=== PATIENT | female | born 1980 | race Two or more races ===

== ENCOUNTER → 2017-08-03 | Outpatient (CLI) | payer OTHER ==
[~2017-08-03] MED LIST: ACETAMINOPHEN; AIRBORNE; AMOX500 PO; AZIT250 PO; CYCL10; HYDACE5; HYDACE5 PO; IBUP400 PO; IBUP600; IBUP600 PO; IBUP800 PO; IBUPROFEN; OXYACE5T PO; PREN-16 PO
== END | disposition home or self-care (01) ==
LOC: LAB SHORT 07:57 → PLD 07:57
DX: N72 Inflammatory disease of cervix uteri (principal); N87.9 Dysplasia of cervix uteri, unspecified
CPT/HCPCS: 88305

== ENCOUNTER → 2017-08-11 | Outpatient (CLI) | payer OTHER ==
[2017-08-11 12:39] LABS: Source, Urine Clean Catch
[2017-08-11 13:45] LABS: Appearance, Urine Clear (Clear); Bilirubin, Urine Neg (Neg); Blood, Urine Neg (Neg); Color, Urine Yellow (P-Yellow); Glucose Qualitative, Urine Neg (Neg); Ketones, Urine Neg (Neg); Leukocyte Esterase, Urine Neg (Neg); Nitrite, Urine Neg (Neg); Protein, Urine Neg (Neg); Specific Gravity, Urine 1.015 (1.003-1.022); Urobilinogen, Urine NORM (Normal)
[2017-08-11 15:04] LABS: Candida species (DNA Probe) Negative (NEGATIVE); G. vaginalis (DNA Probe) Negative (NEGATIVE); T. vaginalis (DNA Probe) Negative (NEGATIVE)
== END | disposition home or self-care (01) ==
LOC: LAB SHORT 12:07 → LAB 12:07
PROVIDERS: Obstetrics & Gynecology
DX: N76.0 Acute vaginitis (principal); R30.0 Dysuria
CPT/HCPCS: 81003; 87480; 87510; 87660

== ENCOUNTER → 2018-04-25 | Outpatient (CLI) | payer OTHER ==
[2018-04-25 14:21] LABS: Candida species (DNA Probe) Negative (NEGATIVE); G. vaginalis (DNA Probe) Negative (NEGATIVE); T. vaginalis (DNA Probe) Negative (NEGATIVE)
[2018-04-27 15:07] LABS: HPV 16 Negative (Negative); HPV 18 Negative (Negative); HPV OTHER HR TYPES Positive (Negative)
== END | disposition home or self-care (01) ==
LOC: LAB SHORT 10:29 → LAB 10:29
PROVIDERS: Nurse Practitioner Obstetrics & Gynecology
DX: Z01.411 Encounter for gynecological examination (general) (routine) with abnormal findings (principal); N76.0 Acute vaginitis
CPT/HCPCS: 87480; 87510; 87624; 87625; 87660; G0123

== ENCOUNTER → 2018-08-14 | Outpatient (CLI) | payer OTHER ==
[~2018-08-14] MED LIST changes: +DOCU100 PO; +HYDR1TAB94 PO; +LORA.5 PO; +MELATONIN5 M1 PO; +ONDA4ODT MM; +PSEU120ER PO
== END | disposition home or self-care (01) ==
LOC: PLD 08:08 → LAB SHORT 08:08
DX: D06.0 Carcinoma in situ of endocervix (principal)
CPT/HCPCS: 88305

== ENCOUNTER 2018-11-19 07:37 | Day surgery (SDC) | payer OTHER ==
[~2018-11-19] VITALS: Ht 154.9 cm; Wt 53.6 kg
[~2018-11-19 07:37] MED LIST changes: -DOCU100 PO; -HYDR1TAB94 PO; -ONDA4ODT MM
--- NOTE | 2018-11-19 08:17 | NUR ---
History, Chart, Medications and Allergies reviewed before start of procedure. Patient confirms NPO status and agrees with scheduled surgery. Lungs clear T/O to Auscultation. Pre-Op teaching done. Pt verbalizes understanding. Patient reports completing Chlorhexadine shower X2 prior to admission to hospital. PATIENT HAS ONE REMAINING PIERCING IN HER RIGHT EAR, REFUSAL FORM ON CHART.
--- NOTE | 2018-11-19 09:05 | NUR ---
0835-SWITCHBOARD RECEPTIONIST REPORT COMPLETED AT BEDSIDE WITH JITENDRA DE LA GARZA RN PRE-SURGICALLY.
--- NOTE | 2018-11-19 09:06 | NUR ---
TRACKER CARD EXPLAINED TO PATIENT'S MOTHER, PLANS TO LEAVE DURING SURGERY, NOTE LEFT FOR DR LARIOS THAT MOTHER WOULD PREFER HER TO CALL HER AFTER SURGERY.
--- NOTE | 2018-11-19 11:23 | NUR ---
REPORT RECIEVED FROM LISA CALLES
--- NOTE | 2018-11-19 15:47 | NUR ---
POST OP: REPORT RECIEVED FROM MANDOLIN REPAIR PERSONLISA CALLES. PT TO UNIT AT ABOUT 1130. UPON ASSESSMENT PT IS IN NO VISABLE DISTRESS, A/O, VSS. SURGICAL SITES WNL, NO VAGINAL BLEED. PT ABLE TO SIT UP AND HAVE ICE CHIPS. ADMISSION HX COMPLETED. WILL CTM
--- NOTE | 2018-11-19 19:26 | NUR ---
SUMMARY: NO ACUTE CHANGE SINCE POST OP. VSS, A/O. PT ABLE TO AMBULATE IN ROOM AND SIT IN RECLINER, TOLERATING REG DIET. CRAMPING PAIN MEDICATED WITH NARCO, GIVEN WITH ZOFRAN. PT HAS DENIED NAUSEA. SURGICAL SITES WNL. SCANT VAGINAL BLEED, PASHA PAD IN PLACE. REPORT GIVEN TO LISA VELEZ.
[2018-11-20 04:54] LABS: BASOPHILS ABSOLUTE AUTO 0.01 K/mm3 (0.00-0.23); BASOPHILS PERCENT AUTO 0 % (0-2); EOSINOPHILS ABSOLUTE AUTO 0.03 K/mm3 (0.00-0.68); EOSINOPHILS PERCENT AUTO 0 % (0-6); Hematocrit 34.4 % (33.0-51.0); Hemoglobin 11.7 g/dL (11.5-16.0); IMMATURE GRAN ABSOLUTE AUTO 0.05 K/mm3 (0.00-0.10); IMMATURE GRAN PERCENT AUTO 0 % (0-1); LYMPHOCYTES ABSOLUTE AUTO 2.96 K/mm3 (0.84-5.20); LYMPHOCYTES PERCENT AUTO 25 % (21-46); MONOCYTES ABSOLUTE AUTO 0.75 K/mm3 (0.16-1.47); MONOCYTES PERCENT AUTO 6 % (4-13); Mean Corpuscular HGB 31.2 pg (26.0-34.0); Mean Corpuscular Volume 92 fL (80-100); Mean Platelet Volume 9.9 fL (9.1-12.4); NEUTROPHILS ABSOLUTE AUTO 8.07 K/mm3 (1.96-9.15); NEUTROPHILS PERCENT AUTO 68 % (41-73); Platelet Count 368 K/mm3 (150-400); RDW Coefficient Variation 11.9 % (11.7-14.2); RDW Standard Deviation 39.9 fL (35.1-46.3); Red Blood Cell Count 3.75 M/mm3 (3.80-5.20); White Blood Cell Count 11.87 K/mm3 (4.00-11.30)
--- NOTE | 2018-11-20 05:50 | NUR ---
SHIFT SUMMARY: PT IS ALERT AND ORIENTED. PT IS CALM AND COOPERATIVE WITH CARE. PT CALLS APPROPRIATELY. PT IS INDEPENDENT IN THE ROOM. PT REPORTS LOWER ABD PAIN ON SEVERAL OCCASIONS, MEDICATING PER EMAR. PT REPORTS NAUSEA R/T PAIN MEDICATION, GIVING PRN ZOFRAN WITH PAIN MEDS. PT DENIES VOMITING AND SOB. FAMILY IN VISITING AT THE START OF THE NIGHT. ELLISON REMOVED @ 0500, PVR SHOWED 31 ML, WILL CONTINUE TO MONITOR. WILL REPORT TO DAY NURSE.
[2018-11-20] MEDS ORDERED: DOCU100 PO (10:22)
[2018-11-20] MEDS ORDERED: HYDR1TAB94 PO (10:23)
[2018-11-20] MEDS ORDERED: ONDA4ODT MM (10:26)
--- NOTE | 2018-11-20 13:41 | NUR ---
DISCHARGE: PT ABLE TO AMBULATE IN HALLS AND VOID THIS AM. PAIN WELL MANAGED WITH HYDROCODONE, NO REPORT OF NAUSEA. DISCHARGE PACKET PRINTED AND EDUCATION GIVEN, PT VERBALIZED UNDERSTANDING. PT SENT WITH SCRIPTS FOR HYDROCODONE AND ZOFRAN. LEFT UNIT WITH DAUGHTER BY FOOT.
== END 2018-11-20 14:00 | disposition home or self-care (01) ==
LOC: ORSCMMR 07:37 → ORD 09:10 → ORSCMMR 09:10 → SURS 11:23 → ORSCMMR 11-20 14:00
PROVIDERS: Obstetrics & Gynecology
PROC: 0UT9FZZ Resection of Uterus, Via Natural or Artificial Opening With Percutaneous Endoscopic Assistance (ICD-10-PCS; principal; 2018-11-19 09:10)
PROC: 0UT7FZZ Resection of Bilateral Fallopian Tubes, Via Natural or Artificial Opening With Percutaneous Endoscopic Assistance (ICD-10-PCS; principal; 2018-11-19 09:10)
DX: N72 Inflammatory disease of cervix uteri (principal); D25.9 Leiomyoma of uterus, unspecified; N70.01 Acute salpingitis; Z87.891 Personal history of nicotine dependence; Z79.899 Other long term (current) drug therapy
CPT/HCPCS: 36415; 85025; 88307; A9270-GY; J0690; J1100; J1170; J1885; J2250; J2270; J2405; J2704; J2765; J3010; J7120; Q0163

== ENCOUNTER → 2020-04-09 | Outpatient (CLI) | payer OTHER ==
[~2020-04-09] MED LIST changes: +DOCU100 PO; +HYDR1TAB94 PO; +ONDA4ODT MM
[2020-04-13 14:08] LABS: HPV 16 Negative (Negative); HPV 18 Negative (Negative); HPV OTHER HR TYPES Negative (Negative)
== END ==
LOC: PLD 15:30 → LAB SHORT 15:30
PROVIDERS: Obstetrics & Gynecology
DX: Z01.419 Encounter for gynecological examination (general) (routine) without abnormal findings (principal)
CPT/HCPCS: 87624; G0123

== ENCOUNTER → 2021-05-18 | Outpatient (CLI) | payer OTHER ==
[2021-05-21 09:11] LABS: HPV 16 Negative (Negative); HPV 18 Negative (Negative); HPV OTHER HR TYPES Negative (Negative)
== END | disposition home or self-care (01) ==
LOC: LAB SHORT 16:58
PROVIDERS: Obstetrics & Gynecology
DX: Z09 Encounter for follow-up examination after completed treatment for conditions other than malignant neoplasm (principal); Z87.410 Personal history of cervical dysplasia
CPT/HCPCS: 87624; G0123

== ENCOUNTER 2022-07-10 11:24 | Emergency (ER) | payer OTHER ==
[~2022-07-10] VITALS: Ht 152.4 cm; Wt 54.9 kg
[2022-07-10 11:51] VITALS: BP 129/91
== END 2022-07-10 14:18 | disposition home or self-care (01) ==
LOC: ER 11:24
DX: S11.91XA Laceration without foreign body of unspecified part of neck, initial encounter (principal); S01.81XA Laceration without foreign body of other part of head, initial encounter; S01.01XA Laceration without foreign body of scalp, initial encounter; Z23 Encounter for immunization; Z88.5 Allergy status to narcotic agent; Z88.2 Allergy status to sulfonamides; Z87.891 Personal history of nicotine dependence; V86.56XA Driver of dirt bike or motor/cross bike injured in nontraffic accident, initial encounter
CPT/HCPCS: 70450; 70491; 90471; 90714; 96374; 99283-25; J1885; Q9967

== ENCOUNTER → 2022-12-09 | Outpatient (CLI) | payer OTHER ==
[2022-12-10 11:00] LABS: Candida species (DNA Probe) Negative (NEGATIVE); G. vaginalis (DNA Probe) Negative (NEGATIVE); T. vaginalis (DNA Probe) Negative (NEGATIVE)
== END ==
LOC: LAB SHORT 14:24 → LAB 14:24
PROVIDERS: Advanced Practice Midwife
DX: R30.0 Dysuria (principal); N76.0 Acute vaginitis
CPT/HCPCS: 87086; 87480; 87510; 87660

== ENCOUNTER → 2023-08-02 | Outpatient (CLI) | payer BC ==
[2023-08-05 09:15] LABS: HPV HIGH RISK BY TMA Not Detected; HPV SOURCE Vaginal
== END ==
LOC: LAB 11:49 → LAB SHORT 11:49
PROVIDERS: Obstetrics & Gynecology
DX: Z01.419 Encounter for gynecological examination (general) (routine) without abnormal findings (principal)
CPT/HCPCS: 87624; G0123